=== PATIENT | female | born 1965 | race Caucasian/White ===

== ENCOUNTER → 2017-12-30 07:13 | Outpatient (CLI) | payer BC, SELFPAY ==
[2017-12-30 09:11] LABS: Hemoglobin A1C 10.1 % (4.5-6.2)
[2017-12-30 10:06] LABS: Anion Gap 7.4 mmol/L (3-11); BUN 18 mg/dL (7-18); CO2 27.6 mmol/L (21.0-32.0); CREATININE 1.21 mg/dL (0.55-1.02); Calcium 8.9 mg/dL (8.5-10.1); Chloride 106 mmol/L (98-107); Estimated GFR 46.91 (mL/min/1.73m2); Glucose 84 mg/dL (70-100); Magnesium 1.7 mg/dL (1.8-2.4); Potassium 4.7 mmol/L (3.5-5.1); Sodium 141 mmol/L (136-145)
[2017-12-30 11:11] LABS: TSH 6.05 uIU/mL (0.358-3.74)
== END ==
PROVIDERS: PCP Family Medicine; Visit Provider Family Medicine
DX: E11.65 Type 2 diabetes mellitus with hyperglycemia (principal); Z79.4 Long term (current) use of insulin; E03.9 Hypothyroidism, unspecified; K21.9 Gastro-esophageal reflux disease without esophagitis; R79.89 Other specified abnormal findings of blood chemistry
CPT/HCPCS: 36415; 80048; 83036; 83735; 84443

== ENCOUNTER 2018-03-30 02:04 | Outpatient (CLI) | payer BC, SELFPAY ==
[2018-03-30 08:33] LABS: Hemoglobin A1C 8.6 % (4.5-6.2)
[2018-03-30 08:42] LABS: TSH 18.97 uIU/mL (0.358-3.74)
== END 2018-03-30 02:24 ==
PROVIDERS: PCP Family Medicine; Visit Provider Family Medicine
DX: E11.9 Type 2 diabetes mellitus without complications (principal)
CPT/HCPCS: 36415; 83036; 84443

== ENCOUNTER 2018-07-05 01:42 | Outpatient (CLI) | payer BC, SELFPAY ==
[2018-07-05 09:47] LABS: Hemoglobin A1C 10.2 % (4.5-6.2)
[2018-07-05 10:24] LABS: ALT 14 U/L (12-78); AST 10 U/L (15-37); Albumin 3.3 g/dL (3.4-5.0); Alkaline Phosphatase 149 U/L (46-116); Anion Gap 8.7 mmol/L (3-11); BUN 17 mg/dL (7-18); Bilirubin, Total 0.6 mg/dL (0.2-1.0); CO2 25.3 mmol/L (21.0-32.0); CREATININE 1.18 mg/dL (0.55-1.02); Calcium 8.7 mg/dL (8.5-10.1); Chloride 102 mmol/L (98-107); Glucose 222 mg/dL (70-100); Potassium 4.3 mmol/L (3.5-5.1); Sodium 136 mmol/L (136-145); TSH (W/Ref FT4) 3.65 uIU/mL (0.358-3.74); Total Protein 7.1 g/dL (6.4-8.2)
== END 2018-07-05 02:02 ==
PROVIDERS: PCP Family Medicine; Visit Provider Family Medicine
DX: E03.9 Hypothyroidism, unspecified (principal); E11.9 Type 2 diabetes mellitus without complications; R74.8 Abnormal levels of other serum enzymes
CPT/HCPCS: 36415; 80053; 83036; 83915; 84443

== ENCOUNTER 2018-10-06 01:58 | Outpatient (CLI) | payer BC, SELFPAY ==
[2018-10-06 07:57] LABS: Hemoglobin A1C 7.2 % (4.5-6.2)
[2018-10-06 08:21] LABS: ALT 20 U/L (12-78); AST 13 U/L (15-37); Albumin 3.8 g/dL (3.4-5.0); Alkaline Phosphatase 116 U/L (46-116); Anion Gap 11.1 mmol/L (3-11); BUN 23 mg/dL (7-18); Bilirubin, Total 0.4 mg/dL (0.2-1.0); CO2 25.9 mmol/L (21.0-32.0); CREATININE 1.09 mg/dL (0.55-1.02); Calcium 8.9 mg/dL (8.5-10.1); Chloride 103 mmol/L (98-107); Estimated GFR 52.71 (mL/min/1.73m2); Glucose 83 mg/dL (70-100); Potassium 4.5 mmol/L (3.5-5.1); Sodium 140 mmol/L (136-145); Total Protein 7.4 g/dL (6.4-8.2)
[2018-10-06 08:39] LABS: COMMENT (LAB VIEW ONLY) 122.67 mg/dL; Microalb ug/mg Crea 15.6 ug/mg Cr
== END 2018-10-06 02:18 ==
PROVIDERS: PCP Family Medicine; Visit Provider Family Medicine
DX: E11.65 Type 2 diabetes mellitus with hyperglycemia (principal); Z79.4 Long term (current) use of insulin
CPT/HCPCS: 36415; 80053; 82043; 82570; 83036

== ENCOUNTER 2018-12-22 07:02 | Outpatient (CLI) | payer BC, SELFPAY ==
[2018-12-22 08:27] LABS: Anion Gap 10.2 mmol/L (3-11); BUN 11 mg/dL (7-18); CO2 25.8 mmol/L (21.0-32.0); CREATININE 1.06 mg/dL (0.55-1.02); Calcium 9.1 mg/dL (8.5-10.1); Chloride 106 mmol/L (98-107); Estimated GFR 54.44 (mL/min/1.73m2); Glucose 142 mg/dL (70-100); Potassium 4.5 mmol/L (3.5-5.1); Sodium 142 mmol/L (136-145); TSH 0.25 uIU/mL (0.36-3.74)
[2018-12-22 10:12] LABS: Hemoglobin A1C 7.6 % (4.5-6.2)
== END 2018-12-22 07:22 ==
PROVIDERS: PCP Family Medicine; Visit Provider Family Medicine
DX: E11.9 Type 2 diabetes mellitus without complications (principal); E03.9 Hypothyroidism, unspecified
CPT/HCPCS: 36415; 80048; 83036; 84443

== ENCOUNTER 2019-03-31 03:18 | Outpatient (CLI) | payer BC, SELFPAY ==
[2019-03-31 07:34] LABS: Hemoglobin A1C 8.3 % (4.5-6.2)
[2019-03-31 08:23] LABS: Anion Gap 9.9 mmol/L (3-11); BUN 27 mg/dL (7-18); CO2 27.1 mmol/L (21.0-32.0); CREATININE 1.28 mg/dL (0.55-1.02); Calcium 9.3 mg/dL (8.5-10.1); Calculated LDL 71 mg/dL; Chloride 103 mmol/L (98-107); Cholesterol 161 mg/dL (<200); Estimated GFR 43.62 (mL/min/1.73m2); Glucose 139 mg/dL (74-106); HDL Cholesterol 31 mg/dL (40-60); Potassium 4.6 mmol/L (3.5-5.1); Sodium 140 mmol/L (136-145); TSH 9.66 uIU/mL (0.36-3.74); Triglyceride 298 mg/dL (<150)
== END 2019-03-31 03:38 ==
PROVIDERS: PCP Family Medicine; Visit Provider Family Medicine
DX: E78.5 Hyperlipidemia, unspecified (principal); E11.9 Type 2 diabetes mellitus without complications; E03.9 Hypothyroidism, unspecified
CPT/HCPCS: 36415; 80048; 80061; 83036; 84443

== ENCOUNTER 2019-10-31 21:55 | Outpatient (REF) | payer BC, SELFPAY ==
[2019-10-31 21:47] LABS: Hemoglobin A1C 10.2 % (3.8-5.6)
[2019-10-31 21:49] LABS: BUN 30 mg/dL (7-18); CREATININE 1.71 mg/dL (0.55-1.02); Calcium 9.5 mg/dL (8.5-10.1); Chloride 100 mmol/L (98-107); Estimated GFR 31.23 (mL/min/1.73m2); Glucose 286 mg/dL (74-106); Magnesium 2.1 mg/dL (1.8-2.4); Potassium 5.3 mmol/L (3.5-5.1); Sodium 134 mmol/L (136-145); TSH 10.95 uIU/mL (0.36-3.74)
[2019-11-02 11:54] LABS: Lyme Ab w Rflx to Lyme Confirm Negative (Negative)
== END 2019-10-31 22:15 ==
LOC: LBN 21:55
PROVIDERS: PCP Family Medicine; Visit Provider Family Medicine
DX: E03.9 Hypothyroidism, unspecified (principal); E11.9 Type 2 diabetes mellitus without complications; E83.42 Hypomagnesemia; W57.XXXA Bitten or stung by nonvenomous insect and other nonvenomous arthropods, initial encounter; T14.8XXA Other injury of unspecified body region, initial encounter
CPT/HCPCS: 80048; 82043; 82570; 83036; 83735; 84443; 86618

== ENCOUNTER 2019-12-26 07:33 | Outpatient (CLI) | payer BC, SELFPAY ==
[2019-12-28 21:34] LABS: SARS-CoV-2 RNA Undetected (Undetected); SARS-CoV-2 Specimen Source Nasopharynx
== END 2019-12-26 07:53 ==
PROVIDERS: PCP Family Medicine; Visit Provider Family Medicine
DX: Z11.59 Encounter for screening for other viral diseases (principal)
CPT/HCPCS: U0003

== ENCOUNTER 2020-05-01 02:25 | Outpatient (CLI) | payer BC, SELFPAY ==
[2020-05-01 08:06] LABS: Hemoglobin A1C 10.5 % (<5.7)
[2020-05-01 08:34] LABS: ALT 20 U/L (14-59); AST 12 U/L (15-37); Albumin 3.7 g/dL (3.4-5.0); Alkaline Phosphatase 139 U/L (46-116); Anion Gap 10.2 mmol/L (3-11); BUN 23 mg/dL (7-18); Bilirubin, Total 0.4 mg/dL (0.2-1.0); CO2 25.8 mmol/L (21.0-32.0); CREATININE 1.33 mg/dL (0.55-1.02); Calcium 8.8 mg/dL (8.5-10.1); Calculated LDL 114 mg/dL (<100); Chloride 105 mmol/L (98-107); Cholesterol 173 mg/dL (<200); Estimated GFR 41.58 (mL/min/1.73m2); Glucose 153 mg/dL (74-106); HDL Cholesterol 35 mg/dL (40-60); Potassium 4.2 mmol/L (3.5-5.1); Sodium 141 mmol/L (136-145); TSH 4.08 uIU/mL (0.36-3.74); Triglyceride 123 mg/dL (<150)
== END 2020-05-01 02:45 ==
PROVIDERS: PCP Family Medicine; Visit Provider Family Medicine
DX: E03.9 Hypothyroidism, unspecified (principal); E11.9 Type 2 diabetes mellitus without complications
CPT/HCPCS: 36415; 80053; 80061; 83036; 84443

== ENCOUNTER 2020-05-22 13:07 | Outpatient (CLI) | payer BC, SELFPAY ==
[2020-05-22 13:36] LABS: Troponin I < 0.05 ng/mL (<0.06)
== END 2020-05-22 13:27 ==
PROVIDERS: PCP Family Medicine; Visit Provider Physician Assistant
DX: R07.9 Chest pain, unspecified (principal)
CPT/HCPCS: 36415; 84484

== ENCOUNTER 2020-05-22 15:04 | Outpatient (CLI) | payer BC, SELFPAY ==
--- NOTE | 2020-05-22 12:15 | DI.RAD_ITS ---
EXAM: XR CHEST 2V PA LATERAL CLINICAL HISTORY: diminished breath sounds LLL, chest pain, shoulder pain, R07.9, M25.519 TECHNIQUE: 2D digital imaging was performed. COMPARISON: CR CHEST 2 VIEWS PA,LAT from 08/07/2014 FINDINGS: MEDIASTINUM: Normal. HEART: Normal. PULMONARY VASCULATURE: Normal. LUNGS: Linear scarring above the left diaphragm. PLEURAL SPACE: No pleural effusion or pneumothorax. BONE:Hardware lower cervical spine. Stable degenerative changes in mid thoracic spine. OTHER FINDINGS:Stable elevated left diaphragm. IMPRESSION: No acute pulmonary findings. DATA REPOSITORY: RADIATION DOSE DELIVERED:
== END 2020-05-22 15:24 ==
PROVIDERS: PCP Family Medicine; Visit Provider Physician Assistant
DX: R07.9 Chest pain, unspecified (principal)
CPT/HCPCS: 71046

== ENCOUNTER 2020-06-06 15:09 | Outpatient (CLI) | payer BC, SELFPAY ==
--- NOTE | 2020-06-06 14:28 | DI.RAD_ITS ---
EXAM: XR SHOULDER LT COMPLETE 2+V INDICATION: Left shoulder pain. COMPARISON: No exams were available for comparison TECHNIQUE: 2D digital imaging was performed. FINDINGS: There is evidence of previous rotator cuff repair. There is no significant spurring at the AC joint. There is minimal spurring at the glenoid. Glenohumeral joint space is maintained. IMPRESSION: Minimal degenerative changes. Previous surgery. DATA REPOSITORY: RADIATION DOSE DELIVERED:
== END 2020-06-06 15:29 ==
PROVIDERS: PCP Family Medicine; Referring Provider Family Medicine; Visit Provider Student in an Organized Health Care Education/Training Program
DX: M19.012 Primary osteoarthritis, left shoulder (principal)
CPT/HCPCS: 73030

== ENCOUNTER 2020-07-03 02:59 | Outpatient (CLI) | payer BC, SELFPAY ==
--- NOTE | 2020-07-03 14:00 | NS.NUTBLAN_ITS ---
Elida wa referred to Medical Nutrition Therapy for continuous glucose monitor placement (Dexcom 6). Elida reports that she takes 40 u lantus HS, along with 1500 mg metformin qd in AM. Elida reports that she does not check her BS but is very excited to use the Dexcom. She was unable to pair the dexcom to her phone ( she will follow up with her phone company and discuss) so will use the transmitter going forward. She would like her CGM to be monitored remotely but that is not possible if not paired with her phone. Intervention: Dexcom 6 was placed on her abdomen and sensor placed. Transmitter was programed and ideal range set at 70-180 mg/dl. Elida instructed to do finger sticks when symptoms don't match BS or when device indicates finger stick needed. Hypo and hyperglycemic alarms set. Elida educated on how to adjust alarms per preference. Education today also focused on well balanced meals, importance of eating meals on time and counting carbohydrates and limiting to no more than 65 g per meal. Encouraged daily exercise. follow up visit scheduled for 07/20/20 at 2 pm.
== END 2020-07-03 03:00 | disposition home or self-care (01) ==
LOC: DS 02:59
PROVIDERS: PCP Family Medicine; Visit Provider Dietitian, Registered
DX: E11.9 Type 2 diabetes mellitus without complications (principal); Z79.4 Long term (current) use of insulin; Z71.3 Dietary counseling and surveillance
CPT/HCPCS: 97802

== ENCOUNTER 2020-07-31 03:37 | Outpatient (CLI) | payer BC, SELFPAY ==
[2020-07-31 12:40] LABS: Hemoglobin A1C 9.7 % (<5.7)
[2020-07-31 12:45] LABS: ALT 23 U/L (14-59); AST 14 U/L (15-37); Albumin 3.9 g/dL (3.4-5.0); Alkaline Phosphatase 115 U/L (46-116); Anion Gap 10.6 mmol/L (3-11); BUN 24 mg/dL (7-18); Bilirubin, Total 0.3 mg/dL (0.2-1.0); CO2 26.4 mmol/L (21.0-32.0); CREATININE 1.3 mg/dL (0.55-1.02); Calculated LDL 83 mg/dL (<100); Chloride 107 mmol/L (98-107); Cholesterol 140 mg/dL (<200); Estimated GFR 42.68 (mL/min/1.73m2); Glucose 133 mg/dL (74-106); HDL Cholesterol 36 mg/dL (40-60); Potassium 4.5 mmol/L (3.5-5.1); Sodium 144 mmol/L (136-145); TSH 2.32 uIU/mL (0.36-3.74); Total Protein 7.3 g/dL (6.4-8.2); Triglyceride 106 mg/dL (<150)
== END 2020-07-31 03:38 | disposition home or self-care (01) ==
LOC: LOS 03:38
PROVIDERS: PCP Family Medicine; Visit Provider Family Medicine
DX: E03.9 Hypothyroidism, unspecified (principal); E11.9 Type 2 diabetes mellitus without complications
CPT/HCPCS: 36415; 80053; 80061; 83036; 84443

== ENCOUNTER → 2020-08-20 02:36 | Outpatient (CLI) | payer BC, SELFPAY ==
--- NOTE | 2020-08-20 08:30 | DI.MRI_ITS ---
EXAM: MR UPPER JOINT LT WO CLINICAL HISTORY: LT SHOULDER PAIN, CONTRACTURE,SUBACROMIAL IMPINGEMENT,BURSITIS,M75.52, TECHNIQUE: Multiplanar multisequence MRI of the shoulder was performed. COMPARISON: CR XR SHOULDER LT COMPLETE 2+V from 06/06/2020 FINDINGS: MARROW:There is no evidence of fracture, Hill-Sachs deformity, nor ominous osseous lesions. There is evidence of previous rotator cuff mechanism repair with a single fastener channel in the greater tube rosity and there is also a biceps tenodesis site on the anterior aspect of the proximal diaphysis of the humerus. ROTATOR CUFF MECHANISM: AC JOINT/ACROMIUM: There mild degenerative changes in the AC joint. There is focal subarticular nicholas a on the anterior aspect of the clavicle side of the joint. No abnormal intraosseous abnormality on the acromial side.. There is no evidence of os acromiale. Supraspinatus: Mild increased signal. No evidence of partial or full-thickness tear. However, there is a small amount of fluid in the subacromial bursa, probably bursitis. No prominent muscle atrophy . Infraspinatus: Intact. No evidence of tear nor muscle atrophy. There is a tiny subarticular cyst in the greater tuberosity subjacent to the infraspinatus insertion site. Teres Minor: Intact. No evidence of tear nor muscle atrophy. Subscapularis/anterior cuff: Intact. No abnormal signal at the level of the multipennate insertional fibers. No significant tear nor atrophy. BICEPS TENDON: Absent from the intertubercular groove (previous tenodesis) Tenodesis site is in the proximal diaphysis of the humerus. LABRUM: No labral tear identified. No evidence of paralabral cyst. LABROLIGAMENTOUS/CAPSULAR COMPLEX: There is no evidence of avulsion of the anterior-inferior labrum, capsule, inferior glenohumeral liga ment complex nor disruption of the scapular periosteum to suggest the presence of a Bankart lesion. GLENOHUMERAL JOINT: No joint effusion nor obvious loose intra-articular bodies. No chondral defects. No osteophytes. No degenerative subarticular cysts. No evidence of capsular tear. The inferior gle nohumeral ligament is intact. QUADRILATERAL SPACE: No evidence of mass in the region of the axillary nerve and dorsal circumflex hu meral vessels. Visualized triceps muscle at this level appears unremarkable. IMPRESSION: 1. There is evidence of prior rotator cuff tendon repair and biceps tenodesis. 2. No evidence of obvious retear ink of the rotator cuff mechanism nor muscle atrophy. However, ther e is fluid in the subacromial-subdeltoid bursa consistent with element of bursitis. 3. Mild degenerative changes in the AC joint. Minimal degenerative changes in the glenohumeral joint . DATA REPOSITORY:
== END ==
PROVIDERS: PCP Family Medicine; Visit Provider Student in an Organized Health Care Education/Training Program
DX: M25.512 Pain in left shoulder (principal); M75.52 Bursitis of left shoulder; M75.42 Impingement syndrome of left shoulder; M19.012 Primary osteoarthritis, left shoulder
CPT/HCPCS: 73221

== ENCOUNTER 2020-08-21 04:08 | Outpatient (CLI) | payer BC, SELFPAY ==
--- NOTE | 2020-08-21 14:00 | NS.NUTBLAN_ITS ---
ASSESSMENT: Elida returns to nutritional counseling for sensor replacement for her Dexcom6 CGM along with education for connection to Dexcom [employer] shared data feature. She did have to remove her transmitter INTERVENTION: Patient was able to demonstrate replacing her 10 day sensor along with re- inserting her 90 day transmitter satisfactorily. She then received a block of instruction from this RD in connecting to the Dexcom Clarity feature. She has been using her smart phone to collect the CGM data instead of the reader which is the convenient and preferred method for patients who are able to do so. CGM Data is adequate for Analysis by MD,PA or PARACHUTIST/COMBATANT DIVER QUALIFIED: % Time device Active:87.7% Time In Range (70-180mg/dl) : 77% AVG Glucose: 148 mg/dl Standard Deviation: +- 45mg/dl HypoGlycemic Episodes: <1% Noted: 23 August 3am- 5am ( 57-70mg/dl) Hyperglycemic Episodes: >250mg/dl: 2% >180mg/dl: 19% Recommendations: Elida did experience a small percentage of nocturnal hypoglycemia which might be helped by splitting her basal insulin dose am and HS per MD approval. Most hyperglycemic episodes occurred before bedtime r/t her snack choices which we reviewed and discussed alternatives with lower CHO cont. Overall there has been an improvement in AVG glucose AEB: was in the 160's-145 mg/dl. We will continue the Team based approach to her DM self management uitlizing Marilee Chacon, this RD and MD. Recommend Elida return for F/u in 30 days to evaluate progress. Time Spent Face to Face: 1 hour/4 units
== END 2020-08-21 04:09 | disposition home or self-care (01) ==
LOC: DS 04:08
PROVIDERS: PCP Family Medicine; Visit Provider Dietitian, Registered
DX: E11.9 Type 2 diabetes mellitus without complications (principal); Z79.4 Long term (current) use of insulin; Z71.3 Dietary counseling and surveillance
CPT/HCPCS: 97803

== ENCOUNTER 2020-11-05 10:30 | Outpatient (CLI) | payer BC, SELFPAY ==
[2020-11-05 12:49] LABS: Hemoglobin A1C 8.4 % (<5.7)
[2020-11-05 12:54] LABS: TSH 84.84 uIU/mL (0.36-3.74)
== END 2020-11-05 10:31 | disposition home or self-care (01) ==
LOC: LOS 10:31
PROVIDERS: PCP Family Medicine; Visit Provider Family Medicine
DX: E11.9 Type 2 diabetes mellitus without complications (principal); E03.9 Hypothyroidism, unspecified
CPT/HCPCS: 36415; 83036; 84443

== ENCOUNTER 2020-11-05 18:13 | Outpatient (REF) | payer BC, SELFPAY ==
--- NOTE | 2020-11-05 11:00 | PAPFT_PTH ---
PATIENT: Elida Morataya LOC: [facility] U#:[id number] AGE/SX: 55/F ROOM: RE11/05/[address]: Olga Marie MD : 1965 BED: DIS: 11/05/2020 SPEC #: [id number] RECD: 11/05/20 18:17 STATUS: RADHA REQ #: [id number] JER: 11/05/20 11:[address]: Olga Marie DEPT: [facility] Cytology RECD BY: Chelsi Escobedo Tissues: 1 - CX/ENDOCX FOR PAP SMEARS Procedures: PAP THIN PREP/UVM Screening HPV DNA PROBE Comments: [id number]
== END 2020-11-05 18:14 | disposition home or self-care (01) ==
LOC: LBN 18:13
PROVIDERS: PCP Family Medicine; Visit Provider Family Medicine
DX: Z12.4 Encounter for screening for malignant neoplasm of cervix (principal); Z11.51 Encounter for screening for human papillomavirus (HPV)
CPT/HCPCS: 88142; 87624

== ENCOUNTER 2020-11-21 02:32 | Outpatient (CLI) | payer BC, SELFPAY ==
--- NOTE | 2020-11-21 09:30 | DI.MAMMO_ITS ---
Exam(s) MAMMO SCREENING EXAM: MAMMO SCREENING CLINICAL HISTORY: screening,Z12.39. TECHNIQUE: Bilateral full field digital CC and MLO mammographic images were obtained with 3D tomosyn thesis and utilizing computer aided detection (CAD). COMPARISON: Prior mammograms dating back to 2014, the most recent being December 2016. FINDINGS: In the right breast there is a microcalcification group located 9 cm in from the nipple which is unch anged from 2015 and therefore benign. Skin mole posteriorly on the left side is noted, previously marked. No new significant radiograph findings in left breast Benign-appearing nodular density in the right breast is unchanged from 2010. There is no significant architectural distortion nor skin thickening-retraction. IMPRESSION: Stable benign findings. No radiographic evidence of malignancy. BI-RADS Category 2 - Benign Findings Breast Density - Category B - Scattered areas of fibroglandular density Breast density Category C or D implies that the patient has dense breast tissue. Dense breast tissue can make it harder to find cancer on a mammogram. Dense breast tissue is also associated with an incr eased risk of breast cancer. This information about the result of the mammogram report was provided to the patient to raise their awareness. Use this report when you speak with the patient about their risks for breast cancer, which includes their family history. At that time, you may recommend additional screening tests (Ultrasoun d or MRI) as these tests may add significant information. A negative radiographic report should not delay biopsy if a dominant or clinically suspicious mass is present. Up to ten percent of cancers are not identified on mammography. A negative report may reinforce clinical impression. Adenosis and dense breasts may obscure an underlying neoplasm. False positive reports average 6 to 10%. Patient will receive a letter notifying them of these results.
== END 2020-11-21 02:52 ==
PROVIDERS: PCP Family Medicine; Visit Provider Family Medicine
DX: Z12.31 Encounter for screening mammogram for malignant neoplasm of breast (principal); R92.8 Other abnormal and inconclusive findings on diagnostic imaging of breast
CPT/HCPCS: 77063; 77067

== ENCOUNTER 2021-05-30 02:00 | Outpatient (CLI) | payer BC, SELFPAY ==
[2021-05-30 07:59] LABS: Hemoglobin A1C 8.9 % (<5.7)
[2021-05-30 08:10] LABS: COMMENT (LAB VIEW ONLY) 105.76 mg/dL
[2021-05-30 08:26] LABS: Anion Gap 11.4 mmol/L (3-11); BUN 36 mg/dL (7-18); CO2 22.6 mmol/L (21.0-32.0); CREATININE 1.6 mg/dL (0.55-1.02); Calcium 9.2 mg/dL (8.5-10.1); Chloride 103 mmol/L (98-107); Estimated GFR 33.47 (mL/min/1.73m2); Glucose 137 mg/dL (74-106); Potassium 4.3 mmol/L (3.5-5.1); Sodium 137 mmol/L (136-145); TSH 9.87 uIU/mL (0.36-3.74)
== END 2021-05-30 02:01 | disposition home or self-care (01) ==
LOC: LBO 02:00
PROVIDERS: PCP Family Medicine; Visit Provider Family Medicine
DX: E03.9 Hypothyroidism, unspecified (principal); E11.9 Type 2 diabetes mellitus without complications; E66.9 Obesity, unspecified
CPT/HCPCS: 36415; 80048; 82043; 82570; 83036; 84443

== ENCOUNTER 2021-08-29 02:28 | Outpatient (CLI) | payer BC, SELFPAY ==
[2021-08-29 08:40] LABS: Hemoglobin A1C 9.1 % (<5.7)
[2021-08-29 09:08] LABS: Anion Gap 8.4 mmol/L (3-11); BUN 21 mg/dL (7-18); CO2 24.6 mmol/L (21.0-32.0); CREATININE 1.4 mg/dL (0.55-1.02); Calcium 9.4 mg/dL (8.5-10.1); Chloride 103 mmol/L (98-107); Estimated GFR 39.04 (mL/min/1.73m2); Glucose 161 mg/dL (74-106); Sodium 136 mmol/L (136-145); TSH (W/Ref FT4) 46.46 uIU/mL (0.36-3.74)
[2021-08-29 09:34] LABS: FREE T4 0.83 ng/dL (0.76-1.46)
== END 2021-08-29 02:29 | disposition home or self-care (01) ==
LOC: LBO 02:28
PROVIDERS: PCP Family Medicine; Visit Provider Family Medicine
DX: E11.65 Type 2 diabetes mellitus with hyperglycemia; I10 Essential (primary) hypertension; Z79.4 Long term (current) use of insulin; E66.9 Obesity, unspecified; E03.9 Hypothyroidism, unspecified
CPT/HCPCS: 36415; 80048; 83036; 84439; 84443

== ENCOUNTER 2022-01-28 01:38 | Outpatient (CLI) | payer BC, SELFPAY ==
[2022-01-28 07:44] LABS: Hemoglobin A1C 8.8 % (<5.7)
[2022-01-28 08:12] LABS: Anion Gap 10.6 mmol/L (3-11); BUN 29 mg/dL (7-18); CO2 23.4 mmol/L (21.0-32.0); CREATININE 1.6 mg/dL (0.55-1.02); Chloride 105 mmol/L (98-107); Estimated GFR 37.62 (mL/min/1.73m2); Glucose 172 mg/dL (74-106); Potassium 4.9 mmol/L (3.5-5.1); Sodium 139 mmol/L (136-145); TSH (W/Ref FT4) 34.22 uIU/mL (0.36-3.74)
[2022-01-28 08:30] LABS: FREE T4 0.81 ng/dL (0.76-1.46)
== END 2022-01-28 01:39 | disposition home or self-care (01) ==
LOC: LBO 01:38
PROVIDERS: PCP Family Medicine; Visit Provider Family Medicine
DX: N18.32 Chronic kidney disease, stage 3b (principal); Z00.00 Encounter for general adult medical examination without abnormal findings; E11.3219 Type 2 diabetes mellitus with mild nonproliferative diabetic retinopathy with macular edema, unspecified eye; E11.65 Type 2 diabetes mellitus with hyperglycemia; R73.01 Impaired fasting glucose; Z79.4 Long term (current) use of insulin; E03.9 Hypothyroidism, unspecified
CPT/HCPCS: 36415; 80048; 83036; 84439; 84443

== ENCOUNTER 2022-02-19 01:52 | Outpatient (CLI) | payer BC, SELFPAY ==
--- NOTE | 2022-02-19 07:30 | DI.RAD_ITS ---
Exam(s) XR SHOULDER RT COMPLETE 2+V EXAM: XR SHOULDER RT COMPLETE 2+V CLINICAL HISTORY: right shoulder pain,M25.511 TECHNIQUE: COMPARISON: CR XR SHOULDER LT COMPLETE 2+V from 06/06/2020 FINDINGS: Five views were obtained. No significant bony or soft tissue abnormality seen. IMPRESSION: RADIATION DOSE DELIVERED: Total DLP
== END 2022-02-19 02:12 ==
LOC: DI 01:52
PROVIDERS: PCP Family Medicine; Visit Provider Family Medicine
DX: G89.29 Other chronic pain (principal); M25.511 Pain in right shoulder
CPT/HCPCS: 73030

== ENCOUNTER 2022-03-18 22:12 | Outpatient (REF) | payer BC, SELFPAY | END 2022-03-18 22:13 | disposition home or self-care (01) | LOC: LBN 22:12 | PROVIDERS: PCP Family Medicine; Visit Provider Family Medicine | DX: N39.0 Urinary tract infection, site not specified (principal) | CPT/HCPCS: 87077; 87086; 87186 ==

== ENCOUNTER 2022-04-25 00:44 | Outpatient (CLI) | payer BC, SELFPAY ==
--- NOTE | 2022-04-25 06:15 | DI.MRI_ITS ---
Exam(s) MR UPPER JOINT RT WO EXAM: MR UPPER JOINT RT WO CLINICAL HISTORY: R SHOULDER PAIN,TRAUMATIC TEAR RT ROTATOR CUFF, S46.011A TECHNIQUE: Multiplanar multisequence MRI of the shoulder was performed. COMPARISON: CR XR SHOULDER LT COMPLETE 2+V from 06/06/2020 MR MR UPPER JOINT LT WO from 08/20/2020 CR XR SHOULDER RT COMPLETE 2+V from 02/19/2022 FINDINGS: MARROW:There is no evidence of fracture, Hill-Sachs deformity, bony Bankart lesion, nor ominous osseo us lesions. ROTATOR CUFF MECHANISM: AC JOINT/ACROMIUM: Mild degenerative changes in the AC joint. No prominent downgoing osteophytes.. There is no evidence of os acromiale. Supraspinatus: There is some tendinitis signal but no high-grade tear. No atrophy. No fluid in the subacromial bursa. Infraspinatus: Intact. No evidence of tear nor muscle atrophy. Teres Minor: Intact. No evidence of tear nor muscle atrophy. Subscapularis/anterior cuff: Intact. No abnormal signal at the level of the multipennate insertional fibers. No significant tear nor atrophy. BICEPS TENDON: Normally position in the intertubercular groove. No evidence of tear. There is some fluid in the biceps tendon sheath consistent with tenosynovitis. No loose bodies at th is level. LABRUM: No abnormal signal in the superior labrum posterior to the biceps insertion. Also no evidenc e of posterior labral tear. No anterior labral tear. Inferior labrum also appears intact. LABROLIGAMENTOUS/CAPSULAR COMPLEX: There is no evidence of avulsion of the anterior inferior labrum nor periosteal stripping. No intrao sseous edema in the anterior glenoid. GLENOHUMERAL JOINT: No joint effusion nor obvious loose intra-articular bodies. No chondral defects. No osteophytes. No degenerative subarticular cysts. No evidence of capsular tear. The inferior gle nohumeral ligament is intact. QUADRILATERAL SPACE: No evidence of mass in the region of the axillary nerve and dorsal circumflex hu meral vessels. Visualized triceps muscle at this level appears unremarkable. IMPRESSION: 1. Some tendinitis is seen in the supraspinatus tendon but no evidence of significant tear nor retrac tion musculotendinous junction. No muscle atrophy. There is no fluid in the subacromial bursa. 2. Other muscular components of the rotator cuff mechanism are intact. 3. No obvious biceps tendon tear but there does appear to be an element of tenosynovitis with fluid i n the biceps tendon sheath. There are no loose bodies evident within this fluid. 4. There are no labral tears evident. DATA REPOSITORY:
== END 2022-04-25 01:04 ==
LOC: DI 00:44
PROVIDERS: PCP Family Medicine; Visit Provider Student in an Organized Health Care Education/Training Program
DX: M25.511 Pain in right shoulder; S46.011A Strain of muscle(s) and tendon(s) of the rotator cuff of right shoulder, initial encounter; X58.XXXA Exposure to other specified factors, initial encounter; M19.011 Primary osteoarthritis, right shoulder; M75.21 Bicipital tendinitis, right shoulder
CPT/HCPCS: 73221

== ENCOUNTER 2022-05-14 15:26 | Outpatient (REF) | payer BC, SELFPAY ==
[2022-05-14 14:17] LABS: COMMENT (LAB VIEW ONLY) 162.19 mg/dL; Microalb ug/mg Crea 9.2 ug/mg Cr
== END 2022-05-14 15:27 | disposition home or self-care (01) ==
LOC: LBN 15:26
PROVIDERS: PCP Family Medicine; Visit Provider Family Medicine
DX: E11.65 Type 2 diabetes mellitus with hyperglycemia (principal); Z79.4 Long term (current) use of insulin
CPT/HCPCS: 82043; 82570

== ENCOUNTER 2022-12-15 02:27 | Outpatient (CLI) | payer BC, SELFPAY ==
[2022-12-15 07:27] LABS: Abs Immature Grans 0.05 10^3/uL (0.0-0.06); Absolute Basophil Count 0.05 10^3/uL (0.0-0.2); Absolute Eosinophil Count 0.39 10^3/uL (0.0-0.7); Absolute Lymphocyte Count 3.58 10^3/uL (1.2-3.4); Absolute Neutrophil Count 5.16 10^3/uL (1.2-6.7); Basophils % 0.5; Eosinophils % 3.9; HCT 32.3 % (36.0-46.0); HGB 10.5 g/dL (11.2-15.7); Immature Grans % 0.5; Lymphocytes % 36.1; MCHC 32.5 % (32.0-36.0); MCV 89 fL (80-95); MPV 9.4 fL (8.0-11.0); Platelet Count 253 10^3/uL (130-400); RBC 3.62 10^6/uL (3.93-5.22); RDW-SD 45.9 fL; WBC 9.93 10^3/uL (4.4-10.8)
[2022-12-15 08:00] LABS: ALT 17 U/L (14-59); AST 8 U/L (15-37); Albumin 3.6 g/dL (3.4-5.0); Alkaline Phosphatase 114 U/L (46-116); Anion Gap 9.6 mmol/L (3-11); BUN 41 mg/dL (7-18); Bilirubin, Total 0.2 mg/dL (0.2-1.0); CO2 21.4 mmol/L (21.0-32.0); CREATININE 1.7 mg/dL (0.55-1.02); Calcium 9.1 mg/dL (8.5-10.1); Chloride 105 mmol/L (98-107); Estimated GFR 34.98 (mL/min/1.73m2); Glucose 221 mg/dL (74-106); Potassium 5.4 mmol/L (3.5-5.1); Sodium 136 mmol/L (136-145); TSH (W/Ref FT4) 17.38 uIU/mL (0.36-3.74); Total Protein 7.3 g/dL (6.4-8.2)
[2022-12-15 08:56] LABS: Vitamin D 25 Total 21.1 ng/mL (30-100)
[2022-12-15 19:16] LABS: Parathyroid Hormone,Intact 46 pg/mL (19-88)
[2022-12-16 10:24] LABS: HIV-1/2 Ag & Ab Screen Negative (Negative); Hepatitis C Ab w Rflx HCV PCR Negative (Negative)
== END 2022-12-15 02:28 | disposition home or self-care (01) ==
LOC: LBO 02:27
PROVIDERS: PCP Family Medicine; Visit Provider Family Medicine
DX: N18.32 Chronic kidney disease, stage 3b (principal); Z11.4 Encounter for screening for human immunodeficiency virus [HIV]; E03.9 Hypothyroidism, unspecified; E89.0 Postprocedural hypothyroidism; Z00.00 Encounter for general adult medical examination without abnormal findings
CPT/HCPCS: 36415; 80053; 82306; 86803; 87389; 83970; 84439; 84443; 85025

== ENCOUNTER 2023-06-22 21:26 | Outpatient (REF) | payer BC, SELFPAY | END 2023-06-22 21:27 | disposition home or self-care (01) | LOC: NCHCN 21:26 | PROVIDERS: PCP Nurse Practitioner Family; Visit Provider Nurse Practitioner Family | DX: T14.8XXA Other injury of unspecified body region, initial encounter (principal) | CPT/HCPCS: 87077; 87070; 87205 ==

== ENCOUNTER → 2023-06-23 12:39 | Outpatient (CLI) | payer BC, SELFPAY ==
--- NOTE | 2023-06-23 10:15 | DI.RAD_ITS ---
Exam(s) XR HAND RT COMPLETE EXAM: XR HAND RT COMPLETE CLINICAL HISTORY: skin infection rt index finger S60.511A ABRASION RT HAND L08.9 INFECTION. TECHNIQUE: 2D digital imaging was performed. Three views. COMPARISON: No exams were available for comparison FINDINGS: BONES: No acute fracture is present. No bony destructive lesion is seen. JOINTS: No dislocation present. No significant degenerative changes. SOFT TISSUE: Normal. No foreign body or abnormal gas collection. False nails. IMPRESSION: Unremarkable radiographs of the right hand. DATA REPOSITORY: RADIATION DOSE DELIVERED:
== END ==
PROVIDERS: PCP Nurse Practitioner Family; Visit Provider Nurse Practitioner Family
DX: S60.511A Abrasion of right hand, initial encounter (principal); L08.9 Local infection of the skin and subcutaneous tissue, unspecified; X58.XXXA Exposure to other specified factors, initial encounter
CPT/HCPCS: 73130

== ENCOUNTER 2023-11-19 21:31 | Outpatient (REF) | payer BC, SELFPAY | END 2023-11-19 21:32 | disposition home or self-care (01) | LOC: LBN 21:31 | PROVIDERS: PCP Nurse Practitioner Family; Visit Provider Family Medicine | DX: R30.0 Dysuria (principal) | CPT/HCPCS: 87077; 87186; 87086 ==

== ENCOUNTER 2024-03-07 10:52 | Outpatient (CLI) | payer BC, SELFPAY ==
[2024-03-07 07:32] LABS: Abs Immature Grans 0.04 10^3/uL (0.0-0.06); Absolute Basophil Count 0.05 10^3/uL (0.0-0.2); Absolute Monocyte Count 0.87 10^3/uL (0.1-0.8); Basophils % 0.4 %; Eosinophils % 3.2 %; HCT 35.9 % (36.0-46.0); Immature Grans % 0.3 %; Lymphocytes % 25.7 %; MCH 29.6 pg (27.0-33.0); MCHC 33.4 % (32.0-36.0); MCV 89 fL (80-95); MPV 9.3 fL (8.0-11.0); Monocytes % 6.9 %; Neutrophils % 63.5 %; Platelet Count 250 10^3/uL (130-400); RBC 4.05 10^6/uL (3.93-5.22); RDW 14.8 % (11.7-14.6); RDW-SD 47.9 fL; WBC 12.67 10^3/uL (4.4-10.8)
[2024-03-07 07:37] LABS: Absolute Eosinophil Count 0.41 10^3/uL (0.0-0.7); Absolute Lymphocyte Count 3.26 10^3/uL (1.2-3.4); Absolute Neutrophil Count 8.05 10^3/uL (1.2-6.7)
[2024-03-07 07:57] LABS: ALT 15 U/L (14-59); AST 11 U/L (15-37); Albumin 3.8 g/dL (3.4-5.0); Alkaline Phosphatase 142 U/L (46-116); Anion Gap 12.3 mmol/L (3-11); BUN 22 mg/dL (7-18); Bilirubin, Total 0.55 mg/dL (0.2-1.0); CO2 25.7 mmol/L (21.0-32.0); CREATININE 1.5 mg/dL (0.55-1.02); Calcium 9.7 mg/dL (8.5-10.1); Calculated LDL 102 mg/dL (<100); Chloride 99 mmol/L (98-107); Cholesterol 192 mg/dL (<200); Estimated GFR 40.14 (mL/min/1.73m2); Glucose 373 mg/dL (74-106); HDL Cholesterol 39 mg/dL (40-60); Potassium 4.3 mmol/L (3.5-5.1); Sodium 137 mmol/L (136-145); TSH (W/Ref FT4) 84.42 uIU/mL (0.36-3.74); Total Protein 7.8 g/dL (6.4-8.2); Triglyceride 258 mg/dL (<150)
[2024-03-07 08:17] LABS: FREE T4 0.69 ng/dL (0.76-1.46)
== END 2024-03-07 10:53 | disposition home or self-care (01) ==
LOC: LBO 10:52
PROVIDERS: PCP Nurse Practitioner Family; Visit Provider Nurse Practitioner Family
DX: I10 Essential (primary) hypertension (principal); E11.3219 Type 2 diabetes mellitus with mild nonproliferative diabetic retinopathy with macular edema, unspecified eye; E11.65 Type 2 diabetes mellitus with hyperglycemia; Z79.4 Long term (current) use of insulin; N18.32 Chronic kidney disease, stage 3b
CPT/HCPCS: 36415; 80053; 80061; 84439; 84443; 85025

== ENCOUNTER 2024-06-06 13:41 | Outpatient (CLI) | payer OTHER, SELFPAY ==
[2024-06-06 07:33] LABS: Hemoglobin A1C 10.7 % (<5.7)
[2024-06-06 07:53] LABS: TSH (W/Ref FT4) 21.59 uIU/mL (0.36-3.74)
== END 2024-06-06 13:42 | disposition home or self-care (01) ==
LOC: LBO 13:41
PROVIDERS: PCP Nurse Practitioner Family; Visit Provider Nurse Practitioner Family
DX: E11.3219 Type 2 diabetes mellitus with mild nonproliferative diabetic retinopathy with macular edema, unspecified eye (principal); E11.65 Type 2 diabetes mellitus with hyperglycemia; Z79.4 Long term (current) use of insulin; E89.0 Postprocedural hypothyroidism
CPT/HCPCS: 36415; 83036; 84439; 84443

== ENCOUNTER 2024-09-26 09:24 | Outpatient (CLI) | payer OTHER, SELFPAY ==
[2024-09-26 07:35] LABS: HCT 35.9 % (36.0-46.0); MCH 28.8 pg (27.0-33.0); MCHC 33.4 % (32.0-36.0); MCV 86 fL (80-95); MPV 9.9 fL (8.0-11.0); Platelet Count 309 10^3/uL (130-400); RBC 4.16 10^6/uL (3.93-5.22); RDW 13.2 % (11.7-14.6); RDW-SD 40.9 fL; WBC 9.96 10^3/uL (4.4-10.8)
[2024-09-26 08:08] LABS: Hemoglobin A1C > 13.0 % (<5.7)
[2024-09-26 08:12] LABS: ALT 16 U/L (14-59); AST 12 U/L (15-37); Albumin 3.8 g/dL (3.4-5.0); Alkaline Phosphatase 149 U/L (46-116); Anion Gap 8.1 mmol/L (3-11); BUN 21 mg/dL (7-18); Bilirubin, Total 0.6 mg/dL (0.2-1.0); CO2 27.9 mmol/L (21.0-32.0); CREATININE 1.5 mg/dL (0.55-1.02); Calcium 9.5 mg/dL (8.5-10.1); Calculated LDL 90 mg/dL (<100); Chloride 97 mmol/L (98-107); Cholesterol 191 mg/dL (<200); Estimated GFR 40.14 (mL/min/1.73m2); Glucose 421 mg/dL (74-106); HDL Cholesterol 40 mg/dL (>or=50); Potassium 4.3 mmol/L (3.5-5.1); Sodium 133 mmol/L (136-145); TSH (W/Ref FT4) 75.11 uIU/mL (0.36-3.74); Total Protein 7.9 g/dL (6.4-8.2); Triglyceride 305 mg/dL (<150)
[2024-09-26 08:28] LABS: FREE T4 0.72 ng/dL (0.76-1.46)
== END 2024-09-26 09:25 | disposition home or self-care (01) ==
LOC: LBO 09:25
PROVIDERS: PCP Nurse Practitioner Family; Visit Provider Nurse Practitioner Family
DX: Z00.00 Encounter for general adult medical examination without abnormal findings (principal); I10 Essential (primary) hypertension; E78.5 Hyperlipidemia, unspecified; E11.3219 Type 2 diabetes mellitus with mild nonproliferative diabetic retinopathy with macular edema, unspecified eye; E11.65 Type 2 diabetes mellitus with hyperglycemia; Z79.4 Long term (current) use of insulin; E89.0 Postprocedural hypothyroidism; N18.32 Chronic kidney disease, stage 3b; K21.9 Gastro-esophageal reflux disease without esophagitis; J45.909 Unspecified asthma, uncomplicated; N89.8 Other specified noninflammatory disorders of vagina
CPT/HCPCS: 36415; 80053; 80061; 85027; 83036; 84439; 84443; 87480; 87510; 87660

== ENCOUNTER 2024-10-12 01:40 | Outpatient (CLI) | payer OTHER, SELFPAY ==
--- NOTE | 2024-10-12 07:08 | DI.MAMMO_ITS ---
Exam(s) MAMMO SCREENING EXAM: MAMMO SCREENING CLINICAL HISTORY: screening,z12.39 TECHNIQUE: Bilateral full field digital CC and MLO mammographic images were obtained with 3D tomosyn thesis and utilizing computer aided detection (CAD). COMPARISON: Available for comparison. FINDINGS: Masses/Architectural Distortion: No suspicious masses or areas of architectural distortion are presen t. There is a stable nodule seen in the right breast. Microcalcifications: No suspicious pleomorphic-type are seen. Skin Thickening/Nipple Retraction: None. IMPRESSION: 1. No significant interval change with no specific features of malignancy noted. 2. Unless there is more urgent need, screening mammography is recommended, as per [employer] [place] guidelines. BI-RADS Category 2 - Benign Findings Breast Density - Category B - There are scattered areas of fibroglandular density. Breast density Category C or D implies that the patient has dense breast tissue. Dense breast tissue can make it harder to find cancer on a mammogram. Dense breast tissue is also associated with an incr eased risk of breast cancer. This information about the result of the mammogram report was provided to the patient to raise their awareness. Use this report when you speak with the patient about their risks for breast cancer, which includes their family history. At that time, you may recommend additional screening tests (Ultrasoun d or MRI) as these tests may add significant information. A negative radiographic report should not delay biopsy if a dominant or clinically suspicious mass is present. Up to ten percent of cancers are not identified on mammography. A negative report may reinforce clinical impression. Adenosis and dense breasts may obscure an underlying neoplasm. False positive reports average 6 to 10%. Patient will receive a letter notifying them of these results.
== END 2024-10-12 02:00 ==
PROVIDERS: PCP Nurse Practitioner Family; Visit Provider Nurse Practitioner Family
DX: Z12.31 Encounter for screening mammogram for malignant neoplasm of breast (principal); R92.323 Mammographic fibroglandular density, bilateral breasts; D24.1 Benign neoplasm of right breast
CPT/HCPCS: 77063; 77067

== ENCOUNTER 2024-10-12 13:23 | Outpatient (REF) | payer OTHER, SELFPAY ==
--- NOTE | 2024-10-12 12:40 | PAPFT_PTH ---
PATIENT: Elida Morataya LOC: [facility] U#:[id number] AGE/SX: 59/F ROOM: RE10/12/[address]: Lucy Casiano MD : 1965 BED: DIS: 10/12/2024 SPEC #: [id number] RECD: 10/12/24 13:25 STATUS: RADHA RERobert #: [id number] JER: 10/12/24 12:[address]: Lucy Casiano DEPT: [facility] Cytology RECD BY: Chelsi Escobedo ENTERED: 10/12/24 13:25 SP TYPE: PAPFT OTHR DR: Jalyn Cesar, PRASHANTH Tissues: 1 - CX/ENDOCX FOR PAP SMEARS Procedures: PAP THIN PREP/UVM Screening HPV DNA PROBE Comments: [id number] (HPV 16 & 18/45)
== END 2024-10-12 13:24 | disposition home or self-care (01) ==
LOC: LBN 13:23
PROVIDERS: PCP Nurse Practitioner Family; Visit Provider Obstetrics & Gynecology
DX: Z12.4 Encounter for screening for malignant neoplasm of cervix (principal); R87.618 Other abnormal cytological findings on specimens from cervix uteri
CPT/HCPCS: 88142; 87624

== ENCOUNTER 2024-11-22 18:33 | Outpatient (REF) | payer SELFPAY ==
[2024-11-22 20:43] LABS: Glucose 250 mg/dL (Negative)
[2024-11-22 20:53] LABS: C & S Indicated? Yes; WBC >50 HPF (0-5)
== END 2024-11-22 18:34 | disposition home or self-care (01) ==
LOC: LBN 18:33
PROVIDERS: PCP Nurse Practitioner Family; Visit Provider Nurse Practitioner Family
DX: R39.9 Unspecified symptoms and signs involving the genitourinary system (principal)
CPT/HCPCS: 87077; 81003; 81015; 87086; 87186

== ENCOUNTER 2024-12-06 12:17 | Outpatient (REF) | payer SELFPAY ==
[2024-12-06 21:44] LABS: Glucose >=1000 mg/dL (Negative)
[2024-12-06 21:48] LABS: C & S Indicated? Yes
[2024-12-06 21:58] LABS: WBC >50 HPF (0-5)
== END 2024-12-06 12:18 | disposition home or self-care (01) ==
LOC: LBN 12:17
PROVIDERS: PCP Nurse Practitioner Family; Visit Provider Nurse Practitioner Family
DX: N39.0 Urinary tract infection, site not specified (principal)
CPT/HCPCS: 87077; 81003; 81015; 87086; 87186

== ENCOUNTER 2025-02-14 08:08 | Outpatient (CLI) | payer OTHER, SELFPAY ==
[2025-02-14 08:19] LABS: TSH (W/Ref FT4) 88.98 uIU/mL (0.36-3.74)
[2025-02-14 15:08] LABS: Lab Add On Test DONE
[2025-02-14 15:24] LABS: Anion Gap 13.0 mmol/L (3-11); BUN 31 mg/dL (7-18); CO2 24.0 mmol/L (21.0-32.0); Calcium 9.7 mg/dL (8.5-10.1); Chloride 100 mmol/L (98-107); Estimated GFR 39.89 (mL/min/1.73m2); Glucose 297 mg/dL (74-106); Potassium 4.9 mmol/L (3.5-5.1); Sodium 137 mmol/L (136-145)
[2025-02-14 15:43] LABS: Hemoglobin A1C > 13.0 % (<5.7)
== END 2025-02-14 08:09 | disposition home or self-care (01) ==
PROVIDERS: PCP Nurse Practitioner Family; Visit Provider Nurse Practitioner Family
DX: E89.0 Postprocedural hypothyroidism (principal); E11.3219 Type 2 diabetes mellitus with mild nonproliferative diabetic retinopathy with macular edema, unspecified eye; E11.65 Type 2 diabetes mellitus with hyperglycemia; Z79.4 Long term (current) use of insulin
CPT/HCPCS: 36415; 80048; 83036; 84439; 84443

== ENCOUNTER 2025-02-14 16:49 | Outpatient (REF) | payer OTHER, SELFPAY ==
[2025-02-14 18:46] LABS: Glucose 500 mg/dL (Negative)
[2025-02-14 18:59] LABS: C & S Indicated? Yes; WBC >50 HPF (0-5)
== END 2025-02-14 16:50 | disposition home or self-care (01) ==
LOC: LBN 16:49
PROVIDERS: PCP Nurse Practitioner Family; Visit Provider Nurse Practitioner Family
DX: R30.0 Dysuria (principal)
CPT/HCPCS: 87077; 81003; 81015; 87086; 87186